=== PATIENT | male | born 1940 | race Caucasian/White ===

== ENCOUNTER → 2019-03-07 13:05 | Outpatient (CLI) | payer MEDICARE, SELFPAY ==
[2019-03-07 14:39] LABS: BUN Creatinine Ratio 16.7 (6-22); Blood Urea Nitrogen 15 mg/dL (9-20); Calcium 8.9 mg/dL (8.4-10.2); Carbon Dioxide 30 mmol/L (22-32); Chloride 100 mmol/L (98-107); Estimated Glomerular Filt Rate > 60.0 mL/min (>60); Glucose 87 mg/dL (80-110); HEMOLYSIS < 15 (0-50); Potassium 4.4 mmol/L (3.4-5.1); Sodium 138 mmol/L (137-145)
== END ==
PROVIDERS: Family Provider Internal Medicine; PCP Internal Medicine; Visit Provider Internal Medicine Cardiovascular Disease
DX: I35.0 Nonrheumatic aortic (valve) stenosis (principal)
CPT/HCPCS: 36415; 80048

== ENCOUNTER → 2019-05-31 07:53 | Outpatient (CLI) | payer MEDICARE, SELFPAY ==
--- NOTE | 2019-05-31 | DI.ECHO.S_ITS ---
[facility]---------+ [facility] +---------+ : : [address] : : : : [id number] : : : : Phone: [phone]+ Echocardiogram Report + + :Name: ZENAIDA SANDOVAL Study Date: 05/31/2019 Height: 71 in : :[facility] Weight: 200 lb : : Gender: Male BSA: 2.1 m2 : :: 1940 Age: 78 yrs BP: 144/70 mmHg: :Reason For Study: , POST TAVR : :Ordering Physician: Aggie : :iDmple Ferreira Performed By: Anca Corbin : :Referring: AGGIE FERREIRA : + + Interpretation Summary 1) Normal left ventricular size, wall motion, and systolic function (EF 55- 60%). 2) Normal right ventricular size and function. 3) There is a bioprosthetic aortic valve that is well-seated and opens well. There is normal prosthetic aortic valve function. 4) There is mild perivalvular regurgitation around the prosthetic aortic valve. 5) Compared to the Echo done 02/28/2019, severely stenosis aortic valve has been replaced by bioprosthetic aortic valve that is functioning well. Procedure: A two-dimensional transthoracic echocardiogram with color flow and Doppler was performed. The study quality was technically adequate. Comparison is made with the echocardiogram of 02/28/19. The patient was in atrial fibrillation with heart rates between 60 and 87 bpm during the exam. Left Ventricle: There is mild concentric left ventricular hypertrophy. The left ventricle is normal in size. The left ventricular ejection fraction is normal. The ejection fraction is estimated to be 55-60%. There are no focal wall motion abnormalities. Diastolic function could not be accurately assessed due to atrial fibrillation. Right Ventricle: The right ventricle is normal in size and function. Atria: The left atrium is severely dilated. The right atrium is severely dilated. There is no Doppler evidence for an interatrial shunt. Mitral Valve: The mitral valve leaflets appear mildly thickened, but open well. There is mild mitral annular calcification. There is trace mitral regurgitation. Aortic Valve: New TAVR. Multiple leaks. There is a bioprosthetic aortic valve. The prosthetic aortic valve is well-seated. There is mild perivalvular regurgitation around the prosthetic aortic valve. There is probable normal prosthetic aortic valve function. The prosthetic aortic valve appears to open well. The peak aortic velocity is 1.9 m/sec. The peak aortic velocity on the previous exam was 4.35 m/sec. The aortic valve mean gradient is 7 mmHg. Tricuspid Valve: The tricuspid valve is normal. There is mild tricuspid regurgitation. The right ventricular systolic pressure is estimated to be at least 38 mmHg based on an estimated right atrial pressure of 8 mm Hg. Pulmonic Valve: The pulmonic valve is not well seen, but is grossly normal. There is trace pulmonic regurgitation. Great Vessels: The aortic root is normal size. The ascending aorta is at the upper limits of normal in size. The aortic arch is normal in size. The pulmonary is not well visualized. The IVC is dilated (diameter is greater than 2.1 cm) yet it collapses greater than 50% with a sniff. This suggests a right atrial pressure of 8 mm Hg. Pericardium/ Pleura There is no pericardial effusion. There is no pleural effusion. MMode/2D Measurements & Calculations LVIDd: 4.6 cm LVOT diam: 2.1 cm LVIDs: 2.7 cm Ao root diam: 3.7 cm FS: 41.2 % asc Aorta Diam: 3.8 cm EPSS: 0.77 cm Ao Arch Diam (Prox Trans): 2.8 cm IVSd: 1.4 cm LVPWd: 1.2 cm LV guzman. diameter/BSA (cm/m^2): 2.2 LV sys. diameter/BSA (cm/m^2): 1.3 LA A2 area: 38.0 cm2 RA long axis: 6.7 cm LA A4 area: 39.6 cm2 RA area: 33.1 cm2 LA length (vol): 6.8 cm RA vol: 139.4 ml LA vol: 187.5 ml RA : 66.1 ml/m2 LA vol index: 88.9 ml/m2 IVC diam: 2.6 cm RVD1 (basal): 4.9 cm RVD2 (mid): 3.0 cm TAPSE: 1.8 cm Doppler Measurements & Calculations Ao V2 max: 185.7 cm/sec LVOT Max Otf: 76.9 cm/sec Ao V2 mean: 124.7 cm/sec LV V1 max P.4 mmHg Ao max P.8 mmHg LV V1 VTI: 14.0 cm Ao mean P.1 mmHg DAVON(I,D): 1.6 cm2 Ao V2 VTI: 31.4 cm DAVON(V,D): 1.5 cm2 sev ratio: 0.45 DAVON indexed to BSA (cm^2/m^2): 0.76 MV E max otf: 100.0 cm/sec TR max otf: 272.3 cm/sec TR max P.7 mmHg PA V2 max: 75.7 cm/sec PA V2 mean: 49.4 cm/sec PA mean P.1 mmHg PA Accel Time: 0.06 sec SV(LVOT): 50.5 ml Reading Physician:11:34 AM
== END ==
PROVIDERS: PCP Internal Medicine; Visit Provider Internal Medicine Cardiovascular Disease
DX: I08.2 Rheumatic disorders of both aortic and tricuspid valves (principal); I48.91 Unspecified atrial fibrillation; Z95.2 Presence of prosthetic heart valve
CPT/HCPCS: 93306

== ENCOUNTER → 2020-05-03 09:20 | Outpatient (CLI) | payer MEDICARE, SELFPAY ==
[2020-05-03 10:07] LABS: Add Manual Diff / Slide Review NO; Basophils Absolute Auto 0 /uL (0-100); Basophils Percent Auto 0.6 % (0-2); Eosinophils Absolute Auto 100 /uL (0-450); Eosinophils Percent Auto 2.8 % (2-4); Hematocrit 40.1 % (41-53); Hemoglobin 13.8 g/dL (13.5-17.5); Lymphocytes Absolute Auto 800 /uL (1100-4500); Lymphocytes Percent Auto 18.2 % (25-40); Mean Corpuscular HGB Conc 34.4 % (30-36); Mean Corpuscular Hemoglobin 30.3 PG (26-34); Mean Corpuscular Volume 88.3 fL (80-100); Monocytes Absolute Auto 400 /uL (0-900); Monocytes Percent Auto 8.2 % (3-14); Neutrophils Absolute Auto 3100 /uL (1500-7000); Neutrophils Percent Auto 70.2 % (50-75); Platelet Count 138 X10^3/uL (150-400); Red Blood Cell Count 4.54 X10^6/uL (4.5-5.9); Red Cell Distribution Width 13.8 % (11.6-14.8); White Blood Cell Count 4.3 X10^3/uL (4.5-11.0)
[2020-05-03 10:27] LABS: BUN Creatinine Ratio 21.6 (6-22); Blood Urea Nitrogen 16 mg/dL (9-20); Calcium 9.1 mg/dL (8.4-10.2); Carbon Dioxide 31 mmol/L (22-32); Chloride 103 mmol/L (98-107); Cholesterol 167 mg/dL (140-199); Estimated Glomerular Filt Rate > 60.0 mL/min (>60); Glucose 105 mg/dL (80-110); HDL Cholesterol 55 mg/dL (40-60); HEMOLYSIS < 15 (0-50); LDL Cholesterol Calculated 101 mg/dL (<100); Potassium 4.8 mmol/L (3.4-5.1); Sodium 138 mmol/L (137-145); Triglycerides 57 mg/dL (35-150)
== END ==
PROVIDERS: PCP Internal Medicine; Referring Provider Internal Medicine Cardiovascular Disease; Visit Provider Internal Medicine Cardiovascular Disease
DX: I10 Essential (primary) hypertension (principal)
CPT/HCPCS: 36415; 80048; 80061; 85025

== ENCOUNTER → 2020-06-12 15:50 | Outpatient (CLI) | payer MEDICARE, SELFPAY ==
--- NOTE | 2020-06-12 | DI.ECHO.S_ITS ---
[facility]---------+ [facility] +---------+ : : [address] : : : : [id number] : : : : Phone: [phone]+ Echocardiogram Report + + :Name: ZENAIDA SANDOVAL Study Date: 06/12/2020 Height: 72 in : :[facility] Weight: 215 lb : : Gender: Male BSA: 2.2 m2 : :: 1940 Age: 80 yrs BP: 167/98 mmHg: :Reason For Study: Aortic valve replacement - bioprosthetic : :Ordering Physician: Aggie Musa : :Hanna Performed By: Aixa Navarro : :Referring: AGGIE FERREIRA : + + Interpretation Summary 1) Normal left ventricular size, wall motion, and systolic function (EF 55- 60%). 2) Normal right ventricular size and function. 3) There is a bioprosthetic aortic valve that is well-seated and opens well. There is normal prosthetic aortic valve function (mean gradient 9.6mmHg).. There is mild perivalvular regurgitation around the prosthetic aortic valve. 4) Compared to the Echo done 05/31/2019, no significant change. Procedure: A two-dimensional transthoracic echocardiogram with color flow and Doppler was performed. The study quality was technically adequate. Comparison is made with the echocardiogram of 05/31/2019. The patient was in atrial fibrillation with heart rates between 60-93 bpm during the exam. Left Ventricle: The left ventricle is normal in size and wall thickness. The ejection fraction is estimated to be 55-60%. Diastolic function could not be accurately assessed due to atrial fibrillation. Right Ventricle: The right ventricle is normal size. Right ventricular systolic function is at the lower limits of normal. Atria: The left atrium is severely dilated. The right atrium is severely dilated. There is no Doppler evidence for an interatrial shunt. Mitral Valve: The mitral valve leaflets appear mildly thickened, but open well. There is mild mitral annular calcification. There is mild mitral regurgitation. Aortic Valve: There is a bioprosthetic aortic valve. The prosthetic aortic valve appears to open well. There is mild perivalvular regurgitation around the prosthetic aortic valve. There is no aortic valve stenosis. Tricuspid Valve: The tricuspid valve is not well visualized, but is grossly normal. There is moderate tricuspid regurgitation. The right ventricular systolic pressure is estimated to be at least 35 mmHg based on an estimated right atrial pressure of 3 mm Hg. Pulmonic Valve: The pulmonic valve leaflets are thin and pliable; valve motion is normal. There is mild pulmonic regurgitation. Great Vessels: The aortic root is not well visualized. The ascending aorta is mild-moderately enlarged. The IVC is of normal diameter and collapses greater than 50% with a sniff. This suggests a low right atrial pressure of 3 mm Hg. Pericardium/ Pleura There is no pericardial effusion. There is no pleural effusion. MMode/2D Measurements & Calculations LVIDd: 4.9 cm LVOT diam: 2.2 cm LVIDs: 3.4 cm asc Aorta Diam: 3.9 cm FS: 30.5 % Ao Arch Diam (Prox Trans): 2.7 cm EPSS: 1.2 cm IVSd: 1.0 cm LVPWd: 0.97 cm LV guzman. diameter/BSA (cm/m^2): 2.2 LV sys. diameter/BSA (cm/m^2): 1.6 LA A2 area: 31.6 cm2 RA long axis: 7.1 cm LA A4 area: 32.9 cm2 RA area: 31.0 cm2 LA length (vol): 7.0 cm RA vol: 114.7 ml LA vol: 126.9 ml RA : 52.2 ml/m2 LA vol index: 57.8 ml/m2 IVC diam: 1.7 cm RVD1 (basal): 3.8 cm TAPSE: 1.7 cm Doppler Measurements & Calculations Ao V2 max: 215.5 cm/sec LVOT Max Otf: 93.2 cm/sec Ao V2 mean: 141.7 cm/sec LV V1 max P.5 mmHg Ao max P.6 mmHg LV V1 VTI: 18.4 cm Ao mean P.6 mmHg DAVON(I,D): 1.8 cm2 Ao V2 VTI: 37.9 cm DAVON(V,D): 1.6 cm2 sev ratio: 0.49 DAVON indexed to BSA (cm^2/m^2): 0.82 AI P1/2t: 589.8 msec AI dec slope: 238.4 cm/sec2 MV E max otf: 72.2 cm/sec TR max otf: 283.5 cm/sec MV A max otf: 108.4 cm/sec TR max P.2 mmHg MV E/A: 0.67 PA V2 max: 96.7 cm/sec Med Peak E' Otf: 10.6 cm/sec PA V2 mean: 62.6 cm/sec E/E' med: 6.8 PA mean P.8 mmHg Lat Peak E' Otf: 11.3 cm/sec PA pr(Accel): 44.7 mmHg E/E' lat: 6.4 E/e' average: 6.6 MV dec time: 0.21 sec SV(LVOT): 68.6 ml Reading Physician:01:09 PM
== END ==
PROVIDERS: PCP Internal Medicine; Referring Provider Internal Medicine Cardiovascular Disease; Visit Provider Internal Medicine Cardiovascular Disease
DX: I08.3 Combined rheumatic disorders of mitral, aortic and tricuspid valves (principal); I77.89 Other specified disorders of arteries and arterioles; Z95.2 Presence of prosthetic heart valve
CPT/HCPCS: 93306

== ENCOUNTER 2021-03-27 09:11 | Emergency (ER) | payer MEDICARE, SELFPAY ==
[2021-03-27] VITALS (7 sets, daily range): BP systolic 144–152; BP diastolic 70–77; PULSE 88–95; RESP 16–37; TEMP 36.9; O2SAT 94–97; BMI 30.1
--- NOTE | 2021-03-27 09:24 | ED_ITS ---
HPI - General Adult General Chief complaint: Abdominal Pain Stated complaint: Abdominal pain Time Seen by Provider: 03/27/21 09:14 Source: patient Mode of arrival: Ambulatory Limitations: no limitations History of Present Illness HPI narrative: Patient is an 80-year-old male with a history of atrial fibrillation and aortic valve replacement and is on anticoagulation here for evaluation of approximately 2 days of right upper quadrant abdominal pain. He states that it started about 2 days ago. Was a fairly sudden onset. Occurred at night. Has been consistent since that time. Does not associated with worsening or getting better with eating or movement or palpation are going to the bathroom. He states that this morning the symptoms seem to have improved and now he is essentially symptom-free. Related Data Home Medications Medication Instructions Recorded Confirmed ASPIRIN (#ASPIRIN) 81 mg PO QDAY #0 07/22/12 atenolol 25 mg PO QDAY #0 07/22/12 doxazosin [Cardura] 2 mg PO QDAY #0 07/22/12 finasteride 5 mg PO QDAY #0 07/22/12 hydrochlorothiazide 25 mg PO QDAY #0 07/22/12 latanoprost [Xalatan] 1 drp [facility] HS #0 07/22/12 losartan 100 mg PO QDAY #0 07/22/12 sertraline 100 mg PO QDAY #0 07/22/12 Allergies Allergy/AdvReac Type Severity Reaction Status Date / Time No Known Drug Allergies Allergy Verified 03/27/21 09:23 Review of Systems Constitutional Constitutional: Denies fever(s) Cardiovascular Cardiovascular: Denies chest pain and Denies dyspnea Respiratory Respiratory: Denies dyspnea Gastrointestinal Gastrointestinal: Reports system reviewed and no additional complaints, except as documented, Reports abdominal pain, Denies nausea and Denies vomiting Genitourinary Genitourinary: Denies dysuria Genitourinary: Denies dysuria Musculoskeletal Musculoskeletal: Denies back pain Integumentary/Breasts Skin/Breast: Denies rash Neurologic Neurologic: Reports system reviewed and no additional complaints, except as documented Psychiatric Psychiatric: Reports system reviewed and no additional complaints, except as documented Endocrine Endocrine: Reports system reviewed and no additional complaints, except as documented Hematologic/Lymphatic On Anticoagulants: Yes Allergic/Immunologic Allergic/Immunologic: Reports system reviewed and no additional complaints, except as documented Patient History Medical History Atrial fibrillation Surgical History (Updated 03/27/21 @ 09:26 by Ihsan Mcgowan DO) Aortic valve replaced Social History Smoking Status: Never smoker Smoking Status: Never smoker alcohol intake frequency: 0-2 drinks per day Substance Use Type: does not use Exam Initial Vital Signs Initial Vital Signs: Vital Signs Temperature 98.5 F 03/27/21 09:13 Pulse Rate 94 H 03/27/21 09:13 Respiratory Rate 16 03/27/21 09:13 Blood Pressure 144/77 H 03/27/21 09:13 Pulse Oximetry 97 03/27/21 09:13 Const General: cooperative and comfortable Limitations: mental status not altered HENMT Head: normal to inspection and normocephalic Resp Effort & Inspection: normal respiratory effort Auscultation: clear to auscultation bilaterally Cardio Rate: regular rate Rhythm: regular rhythm GI Inspection: non-distended Palpation: soft, No firm and No tender Back/Spine/Pelvis Back: No CVA tenderness Skin Lesions: no lesions Rashes: no rashes Neuro General: patient alert, patient awake and patient oriented x3 Cognition: normal cognition Speech: speech normal Extrem General: normal to inspection and capillary refill normal Psych Appearance: grossly normal and well kempt Course Orders Ordered: ED Orders 03/27/21 09:16 Complete Blood Count AUTO DIFF Stat Comprehensive Metabolic Panel Stat Lipase Stat Troponin & CK Cardiac Panel Stat 03/27/21 09:19 EKG-12 Lead Stat 03/27/21 09:25 US abdomen limited Stat Vital Signs Vital signs: Vital Signs - 8 hr 03/27/21 09:13 Temperature 98.5 F Pulse Rate 94 H Respiratory Rate 16 Blood Pressure 144/77 H Pulse Oximetry 97 Medical Decision Making Lab Data Lab results reviewed: Yes I reviewed the patient's lab results. Result diagrams: 03/27/21 09:16 03/27/21 09:16 Labs: Lab Results 03/27/21 03/27/21 03/27/21 Range/Units 09:16 09:16 09:16 WBC 10.8 (4.5-11.0) X10^3/uL RBC 5.04 (4.5-5.9) X10^6/uL Hgb 15.3 (13.5-17.5) g/dL Hct 45.1 (41-53) % MCV 89.6 (80-100) fL MCH 30.4 (26-34) PG MCHC 33.9 (30-36) % RDW 13.7 (11.6-14.8) % Plt Count 161 (150-400) X10^3/uL Neut % (Auto) 80.7 H (50-75) % Lymph % (Auto) 8.9 L (25-40) % [place] % (Auto) 8.9 (3-14) % Eos % (Auto) 1.2 L (2-4) % Baso % (Auto) 0.3 (0-2) % Neut # (Auto) 8700 H (4203-7591) /uL Lymph # (Auto) 1000 L (7285-8134) /uL [place] # (Auto) 1000 H (0-900) /uL Eos # (Auto) 100 (0-450) /uL Baso # (Auto) 0 (0-100) /uL Sodium 133 L (137-145) mmol/L Potassium 3.3 L (3.4-5.1) mmol/L Chloride 98 (98-107) mmol/L Carbon Dioxide 28 (22-32) mmol/L BUN 12 (9-20) mg/dL Creatinine 0.66 (0.66-1.25) mg/dL Estimated GFR > 60.0 (>60) mL/min BUN/Creatinine Ratio 18.2 (6-22) Glucose 126 H (80-110) mg/dL Calcium 8.9 (8.4-10.2) mg/dL Total Bilirubin 2.0 H (0.2-1.3) mg/dL AST 29 (17-59) IU/L ALT 19 (<50) IU/L Alkaline Phosphatase 84 (38-126) U/L Total Creatine Kinase 55 (55-170) U/L CK-MB (CK-2) TNP CK-MB (CK-2) Rel Index TNP Troponin I < 0.012 (0.01-0.034) ng/mL Total Protein 7.4 (6.3-8.2) g/dL Albumin 4.5 (3.5-5.0) g/dL Globulin 2.9 (1.7-4.1) g/dL Albumin/Globulin Ratio 1.6 (1.0-2.8) Lipase 43 (23-300) U/L Imaging Data US - abdomen: Radiologist's Impression: [address] [address]Cecldrqdow ReportSigned Patient: Cornell Gaspar EMR#: [id number]: 8Acct:[id number]/Sex: 80 / MDate of Service: 03/27/21Loc: EDAccession Number: [id number] Procedure: US abdomen limited Ordering Provider: Ihsan Mcgowan D.O. PROCEDURE: US ABDOMEN LIMITED INDICATIONS: Right upper quadrant abdominal pain TECHNIQUE: Real-time focused scanning was performed of the abdomen, with image documentation. COMPARISON: None. FINDINGS: The gallbladder appears normally distended. There is no gallbladder wall thickening. There is a large approximately 3.6 x 5.6 cm gallstone which is nonmobile near the gallbladder neck, potentially impacted. The electronic system engineer reports a negative sonographic Zuñiga sign. There is no pericholecystic fluid. Normal caliber intrahepatic and extrahepatic biliary ducts. IMPRESSION: Large 3.6 x 5.6 cm gallstone which is nonmobile near the gallbladder neck, potentially impacted. No findings of cholecystitis. Dictated by: Bartolome Sims M.D. on 03/27/2021 at 10:18 Approved by: Bartolome Sims M.D. on 03/27/2021 at 10:20 ECG Data Attestation: I personally reviewed and interpreted this ECG as follows: Prior ECG tracings: not available for review Interpretation: Atrial fibrillation Ventricular rate 81 Normal axis Normal QRS Normal QTC No ST T wave changes MDM Narrative Medical decision making narrative: Patient has no leukocytosis. His bilirubin is slightly elevated however the rest of his LFTs and lipase are unremarkable. He has been asymptomatic since arrival here to the emergency department. Afebrile. Has a large gallstone however no signs of cholecystitis on the ultrasound. I did discuss the case with Dr. Guerrero with General surgery. Have patient follow-up as an outpatient. I did discuss this with the patient. We did discuss gallbladder hand diet changes. We did discuss return precautions. He was given contact information for follow-up. He expressed understanding and agreement. Discharge Plan Departure Patient Disposition: Home Clinical Impression: Cholelithiasis Instructions: Gallstones (Alternative Therapy), DI for Gallstones Activity Restrictions/Additional Instructions: You do have a large gallstone noted on the ultrasound however there does not appear to be any infections/inflammation related to this. I recommend that you contact the [facility] at [phone]. They can see you as an outpatient to discuss potential removal of your gallbladder. Until then I recommend that you avoid foods that contain increase/fat/oils as this may cause a return of your symptoms. If you start to have fevers or pain that does not resolve please return to the emergency department for further evaluation Prescriptions: No Action ASPIRIN (#ASPIRIN) 81 mg PO QDAY Qty: 0 RF: 0 latanoprost [Xalatan] 0.005 % drops 1 drp OPHTH HS Qty: 0 RF: 0 sertraline 50 MG tablet 100 mg PO QDAY Qty: 0 RF: 0 hydrochlorothiazide 25 MG tablet 25 mg PO QDAY Qty: 0 RF: 0 doxazosin [Cardura] 1 MG tablet 2 mg PO QDAY Qty: 0 RF: 0 losartan 100 MG tablet 100 mg PO QDAY Qty: 0 RF: 0 finasteride 5 MG tablet 5 mg PO QDAY Qty: 0 RF: 0 atenolol 25 MG tablet 25 mg PO QDAY Qty: 0 RF: 0 Referrals: Maximiliano Martinez MD [Primary Care Provider] - Pete Guerrero MD [Physician] -
[2021-03-27 09:34] LABS: Add Manual Diff / Slide Review NO; Basophils Absolute Auto 0 /uL (0-100); Basophils Percent Auto 0.3 % (0-2); Eosinophils Absolute Auto 100 /uL (0-450); Eosinophils Percent Auto 1.2 % (2-4); Hematocrit 45.1 % (41-53); Hemoglobin 15.3 g/dL (13.5-17.5); Lymphocytes Absolute Auto 1000 /uL (1100-4500); Lymphocytes Percent Auto 8.9 % (25-40); Mean Corpuscular HGB Conc 33.9 % (30-36); Mean Corpuscular Hemoglobin 30.4 PG (26-34); Mean Corpuscular Volume 89.6 fL (80-100); Monocytes Absolute Auto 1000 /uL (0-900); Monocytes Percent Auto 8.9 % (3-14); Neutrophils Absolute Auto 8700 /uL (1500-7000); Neutrophils Percent Auto 80.7 % (50-75); Platelet Count 161 X10^3/uL (150-400); Red Blood Cell Count 5.04 X10^6/uL (4.5-5.9); Red Cell Distribution Width 13.7 % (11.6-14.8); White Blood Cell Count 10.8 X10^3/uL (4.5-11.0)
[2021-03-27 09:45] LABS: Creatine Kinase 55 U/L (55-170); Lipase 43 U/L (23-300)
[2021-03-27 09:57] LABS: Troponin I < 0.012 ng/mL (0.01-0.034)
[2021-03-27 09:59] LABS: Alanine Aminotransferase 19 IU/L (<50); Albumin 4.5 g/dL (3.5-5.0); Albumin Globulin Ratio 1.6 (1.0-2.8); Alkaline Phosphatase 84 U/L (38-126); Aspartate Aminotransferase 29 IU/L (17-59); BUN Creatinine Ratio 18.2 (6-22); Blood Urea Nitrogen 12 mg/dL (9-20); Calcium 8.9 mg/dL (8.4-10.2); Carbon Dioxide 28 mmol/L (22-32); Chloride 98 mmol/L (98-107); Estimated Glomerular Filt Rate > 60.0 mL/min (>60); Globulin 2.9 g/dL (1.7-4.1); Glucose 126 mg/dL (80-110); HEMOLYSIS 18 (0-50); Potassium 3.3 mmol/L (3.4-5.1); Sodium 133 mmol/L (137-145); Total Protein 7.4 g/dL (6.3-8.2)
== END 2021-03-27 11:08 | disposition home or self-care (01) ==
PROVIDERS: Emergency Provider Emergency Medicine; PCP Internal Medicine
DX: K80.20 Calculus of gallbladder without cholecystitis without obstruction (principal)
CPT/HCPCS: 36415; 76705; 80053; 82550; 83690; 84484; 85025; 93005; 99284

== ENCOUNTER → 2021-04-15 15:12 | Outpatient (CLI) | payer MEDICARE, SELFPAY ==
[2021-04-15 15:58] LABS: COVID19 -Nasal RAPID Negative (Negative)
== END ==
PROVIDERS: PCP Internal Medicine; Visit Provider Specialist
DX: Z20.822 Contact with and (suspected) exposure to COVID-19 (principal)
CPT/HCPCS: 87635; C9803

== ENCOUNTER 2021-04-16 08:52 | Day surgery (SDC) | payer MEDICARE, SELFPAY ==
[2021-04-11 11:27] VITALS: BMI 30.5
[2021-04-16] VITALS (9 sets, daily range): BP systolic 97–151; BP diastolic 44–73; PULSE 62–81; RESP 7–16; TEMP 36.1–36.4; O2SAT 94–100; BMI 27.8
--- NOTE | 2021-04-16 | PATH_ITS ---
[facility] Accession Number: [id number] . 01 Material submitted: . gallbladder - GALLBLADDER . 02 Diagnosis: Gallbladder, Cholecystectomy: Chronic cholecystitis with cholelithiasis. Negative for dysplasia and malignancy. [facility] 04/18/2021 1143 Local . 02 Electronically signed: . Jeni Strong MD, Pathologist NPI- [id number] . 01 Gross description: . The specimen is received in formalin, labeled gallbladder and consists of a 13.0 x 4.5 x 4.0 cm, previously disrupted gallbladder with a thickened 0.8 cm in diameter, cystic duct. Opening reveals multiple mays choleliths and cholelith fragments ranging from 0.1-6.0 cm. The mucosa is mays-pink and ragged to granular and the wall thickness measures 0.3 cm. [employer] sections are submitted, to include the en face cystic duct margin (blue), in cassettes A1-A2. (EA:[id number]) /MRV 04/17/2021 0931 Local . 02 Pathologist provided ICD-10: K80.60 . 02 CPT . 021969 Performed at: 01 [facility] [address], [place], [place] [id number] MD Oleg Proctor MD Phone: [phone] Performed at: [address] [facility] [id number] [place], [place] [id number] MD Jeni Strong MD Phone: [phone]
[2021-04-16] MEDS: LACTATED RINGERS 1,000 ML 100 ML IV ×2 (09:16→11:55)
--- NOTE | 2021-04-16 09:46 | PM.PREOP ---
Pre-operative Note COVID-19 COVID-19 status: Negative Result date/Date tested (Pos, Neg/Pending): 04/15/21 Interval Note History & Physical reviewed/Exam performed by Physician: Yes Changes to H&P: No
--- NOTE | 2021-04-16 10:33 | SUR.OPER ---
Supine on padded OR bed, head on pillow, safety belt at thigh, left arm padded and tucked at side. Right arm secured on padded arm oard <90 degrees abduction. Legs uncrossed. Padded footboard in place. Tape over blanket to secure lower legs.
[2021-04-16] MEDS: BUPIVACAINE 0.5% (PF) VIAL 30 ML INJ (10:47)
[2021-04-16] MEDS: CEFAZOLIN 1 GM VIAL 2 GM IV (10:49)
--- NOTE | 2021-04-16 12:18 | PM.OP.1 ---
Operative Date/Time/Diagnoses Date of procedure: 04/16/21 Time of procedure: 12:18 Pre-op diagnosis: Cholelithiasis chronic cholecystitis Post-op diagnosis: same (Hydrops of the gallbladder in addition to chronic cholecystitis and cholelithiasis) Procedure & Clinicians Procedure: Laparoscopic cholecystectomy Same procedure as scheduled: Yes Indications: Abdominal pain with an abnormal ultrasound of the gallbladder Surgeon: Pete Mendoza Yes if Unassisted: Yes Anesthesia Type: General Operative Notes Findings: Chronically inflamed gallbladder. Hydrops of the gallbladder due to stone obstructing the outflow of the gallbladder. Closure Type: primary Specimen(s): other (Gallbladder) Prosthetic devices, grafts, tissues, transplants, or devices: None Estimated Blood Loss (mL): 15 Blood products transfused: none Procedure in detail: Laparoscopic cholecystectomy Complications: none Post-operative Condition: stable Disposition: PACU
[2021-04-16] MEDS: fentaNYL 100 MCG/2 ML INJ IV (12:45)
[2021-04-16] MEDS: ACETAMINOPHEN 325 MG TABLET 650 MG PO (13:06)
[2021-04-16] MEDS: OXYCODONE IR 5 MG TABLET PO (13:07)
== END 2021-04-16 13:33 | disposition home or self-care (01) ==
PROVIDERS: PCP Internal Medicine; Referring Provider Specialist; Visit Provider Specialist
PROC: 0FT44ZZ Resection of Gallbladder, Percutaneous Endoscopic Approach (ICD-10-PCS; CPT 47562; principal; 2021-04-16 09:45)
DX: K80.10 Calculus of gallbladder with chronic cholecystitis without obstruction (principal); I10 Essential (primary) hypertension; I48.91 Unspecified atrial fibrillation; K82.1 Hydrops of gallbladder
CPT/HCPCS: 47562; J0690; J1100; J2405; J2704; J3010

== ENCOUNTER → 2023-03-11 13:43 | Outpatient (CLI) | payer MEDICARE, SELFPAY ==
[2023-03-11 14:28] LABS: BUN Creatinine Ratio 17.1 (6-22); Blood Urea Nitrogen 14 mg/dL (9-20); Calcium 8.8 mg/dL (8.4-10.2); Carbon Dioxide 32 mmol/L (22-32); Chloride 100 mmol/L (98-107); Estimated Glomerular Filt Rate > 60 mL/min (>60); Glucose 100 mg/dL (80-110); HEMOLYSIS < 15 (0-50); Potassium 3.6 mmol/L (3.4-5.1); Sodium 138 mmol/L (137-145)
[2023-03-11 14:39] LABS: Add Manual Diff / Slide Review NO; Basophils Absolute Auto 0 /uL (0-100); Basophils Percent Auto 0.8 % (0-2); Eosinophils Absolute Auto 200 /uL (0-450); Eosinophils Percent Auto 3.7 % (2-4); Hematocrit 41.7 % (41-53); Hemoglobin 14.3 g/dL (13.5-17.5); Lymphocytes Absolute Auto 1300 /uL (1100-4500); Lymphocytes Percent Auto 21.6 % (25-40); Mean Corpuscular HGB Conc 34.4 % (30-36); Mean Corpuscular Hemoglobin 30.3 PG (26-34); Mean Corpuscular Volume 88.3 fL (80-100); Monocytes Absolute Auto 500 /uL (0-900); Monocytes Percent Auto 9.2 % (3-14); Neutrophils Absolute Auto 3800 /uL (1500-7000); Neutrophils Percent Auto 64.7 % (50-75); Platelet Count 201 X10^3/uL (150-400); Red Blood Cell Count 4.73 X10^6/uL (4.5-5.9); Red Cell Distribution Width 13.6 % (11.6-14.8); White Blood Cell Count 5.9 X10^3/uL (4.5-11.0)
== END ==
PROVIDERS: PCP Internal Medicine; Referring Provider Internal Medicine Cardiovascular Disease; Visit Provider Internal Medicine Cardiovascular Disease
DX: I10 Essential (primary) hypertension (principal)
CPT/HCPCS: 36415; 80048; 85025

== ENCOUNTER → 2023-04-20 12:08 | Outpatient (CLI) | payer MEDICARE, SELFPAY ==
--- NOTE | 2023-04-20 | DI.ECHO.S_ITS ---
[facility] +---------+ : : [address] : [place] : : : : [id number] : : : : Phone: [phone]+ Echocardiogram Report + + :Name: ZENAIDA SANDOVAL Study Date: 04/20/2023 Height: 72 in : :[facility] ReadingLocation: Weight: 210 lb : : Gender: Male BSA: 2.2 m2 : :: 1940 Age: 82 yrs BP: 153/87 mmHg: :Reason For Study: S/P TAVR : :Ordering Physician: CHADD, : :AGGIE Performed By: Aixa Navarro : :Referring: AGGIE FERREIRA : + + Interpretation Summary 1) Normal left ventricular size, wall motion, and systolic function (EF 55- 60%). 2) Mildly enlarged right ventricle with low normal function. 3) There is a bioprosthetic aortic valve that is well-seated and opens well. There is normal prosthetic aortic valve function (mean gradient 8mmHg).. There is mild perivalvular regurgitation around the prosthetic aortic valve. 4) There is mild to moderate tricuspid regurgitation. 5) The right ventricular systolic pressure is estimated to be at least 37 mmHg based on an estimated right atrial pressure of 8 mm Hg. 6) Compared to the Echo done 06/12/2020, no significant change. Procedure: A two-dimensional transthoracic echocardiogram with color flow and Doppler was performed. The study quality was technically adequate. Comparison is made with the echocardiogram of 06/12/2020. The patient was in sinus rhythm with heart rates between 59-82 bpm during the exam. Left Ventricle: The left ventricle is normal in size and wall thickness. The ejection fraction is estimated to be 55-60%. Left ventricular systolic function appears normal without focal wall motion abnormalities. Diastolic parameters suggest a relaxation abnormality of the left ventricle, consistent with probable normal filling pressures. Right Ventricle: The right ventricle is mildly dilated. Right ventricular systolic function is at the lower limits of normal. Atria: The left atrium is moderately dilated. The right atrium is moderately dilated. There is no Doppler evidence for an interatrial shunt. Mitral Valve: The mitral valve leaflets appear mildly thickened, but open well. There is mild mitral annular calcification. There is mild mitral regurgitation. Aortic Valve: There is a bioprosthetic aortic valve. There is mild perivalvular regurgitation around the prosthetic aortic valve. Multiple jets. The peak aortic velocity is 1.9 m/sec. The aortic valve mean gradient is 8 mmHg. Tricuspid Valve: The tricuspid valve leaflets are thin and pliable. There is mild to moderate tricuspid regurgitation. The right ventricular systolic pressure is estimated to be at least 37 mmHg based on an estimated right atrial pressure of 8 mm Hg. Pulmonic Valve: The pulmonic valve is not well seen, but is grossly normal. There is mild pulmonic regurgitation. Great Vessels: The aortic root is not well visualized but is probably normal size. The ascending aorta is at the upper limits of normal in size. The IVC is dilated (diameter is greater than 2.1 cm) yet it collapses greater than 50% with a sniff. This suggests a right atrial pressure of 8 mm Hg. Pericardium/ Pleura There is no pericardial effusion. There is no pleural effusion. MMode/2D Measurements & Calculations LVIDd: 4.8 cm LVOT diam: 2.2 cm LVIDs: 2.9 cm asc Aorta Diam: 3.9 cm FS: 39.1 % Ao Arch Diam (Prox Trans): 3.1 cm EPSS: 0.67 cm IVSd: 1.1 cm LVPWd: 0.96 cm LV guzman. diameter/BSA (cm/m^2): 2.2 LV sys. diameter/BSA (cm/m^2): 1.3 LA A2 area: 21.5 cm2 RA long axis: 7.5 cm LA A4 area: 29.2 cm2 RA area: 29.1 cm2 LA length (vol): 6.9 cm RA vol: 95.8 ml LA vol: 76.7 ml RA : 44.1 ml/m2 LA vol index: 35.3 ml/m2 IVC diam: 2.1 cm RVD1 (basal): 4.6 cm RVD2 (mid): 3.3 cm TAPSE: 2.2 cm Doppler Measurements & Calculations Ao V2 max: 191.8 cm/sec LVOT Max Otf: 71.0 cm/sec Ao V2 mean: 135.6 cm/sec LV V1 max P.0 mmHg Ao max P.8 mmHg LV V1 VTI: 14.8 cm Ao mean P.2 mmHg DAVON(I,D): 1.6 cm2 Ao V2 VTI: 35.2 cm DAVON(V,D): 1.4 cm2 sev ratio: 0.42 DAVON indexed to BSA (cm^2/m^2): 0.73 AI P1/2t: 826.8 msec AI dec slope: 157.7 cm/sec2 MV E max otf: 95.0 cm/sec TR max otf: 267.6 cm/sec MV A max otf: 0.98 cm/sec TR max P.6 mmHg MV E/A: 97.3 PA V2 max: 105.0 cm/sec Med Peak E' Otf: 10.6 cm/sec PA V2 mean: 68.0 cm/sec E/E' med: 8.9 PA mean P.2 mmHg Lat Peak E' Otf: 11.2 cm/sec PA pr(Accel): 36.2 mmHg E/E' lat: 8.5 E/e' average: 8.7 MV dec time: 0.24 sec SV(LVOT): 56.0 ml Reading Physician:03:04 PM
== END ==
PROVIDERS: PCP Internal Medicine; Referring Provider Internal Medicine Cardiovascular Disease; Visit Provider Internal Medicine Cardiovascular Disease
DX: Z95.2 Presence of prosthetic heart valve (principal); I08.3 Combined rheumatic disorders of mitral, aortic and tricuspid valves
CPT/HCPCS: 93306

== ENCOUNTER → 2024-04-13 14:52 | Outpatient (CLI) | payer MEDICARE, SELFPAY ==
--- NOTE | 2024-04-13 | DI.ECHO.S_ITS ---
[facility] : : [address] : [place] : : [id number] : : Phone: [phone] Echocardiogram Report + + :Name: ZENAIDA SANDOVAL Study Date: 04/13/2024 Height: 71 in : :[facility] ReadingLocation: Weight: 210 lb : : Gender: Male BSA: 2.2 m2 : :: 1940 Age: 83 yrs BP: 151/96 mmHg: :Reason For Study: PRESENCE OF PROSTHETIC HEART VALVE : :Ordering Physician: CHADD, : :AGGIE Performed By: Bartolome Jade : :Referring: AGGIE FERREIRA : + + Interpretation Summary 1) Normal left ventricular size, wall motion, and systolic function (EF 55- 60%). 2) Mildly enlarged right ventricle with low normal function. 3) There is a bioprosthetic aortic valve that is well-seated and opens well. There is normal prosthetic aortic valve function (mean gradient 9mmHg).. There is mild perivalvular regurgitation around the prosthetic aortic valve. 4) There is mild to moderate tricuspid regurgitation. 5) The right ventricular systolic pressure is estimated to be at least 40 mmHg based on an estimated right atrial pressure of 8 mm Hg. 6) Compared to the Echo done 04/20/2023, no significant change. Procedure: A two-dimensional transthoracic echocardiogram with color flow and Doppler was performed. The study quality was technically adequate. Comparison is made with the echocardiogram of 04/20/2023. The patient was in atrial fibrillation with heart rates between 66-101 bpm during the exam. Left Ventricle: The left ventricle is normal in size. Left ventricular wall thickness is mildly increased. The ejection fraction is estimated to be 55- 60%. Left ventricular systolic function appears normal without focal wall motion abnormalities. Right Ventricle: The right ventricle is mildly dilated. Right ventricular systolic function is at the lower limits of normal. Atria: The left atrium is moderately dilated. The right atrium is moderate to severely dilated. The interatrial septum grossly appears intact with no obvious evidence for an atrial septal defect. Mitral Valve: The mitral valve is grossly normal. There is moderate to severe mitral annular calcification. There is no mitral valve stenosis. There is trace mitral regurgitation. Aortic Valve: There is a bioprosthetic aortic valve. The prosthetic aortic valve is well-seated. The prosthetic aortic valve appears to open well. The peak aortic velocity is 2.07 m/sec. The aortic valve mean gradient is 8.6 mmHg. There is mild aortic regurgitation. Tricuspid Valve: The tricuspid valve is not well visualized, but is grossly normal. There is mild tricuspid valve prolapse. There is no tricuspid stenosis. There is mild to moderate tricuspid regurgitation. The right ventricular systolic pressure is estimated to be at least 39.8 mmHg based on an estimated right atrial pressure of 8 mm Hg. Pulmonic Valve: The pulmonic valve is not well visualized. There is no pulmonic valvular stenosis. There is mild pulmonic regurgitation. Great Vessels: The aortic root is mildly dilated. The ascending aorta is mildly enlarged. The IVC is dilated (diameter is greater than 2.1 cm) yet it collapses greater than 50% with a sniff. This suggests a right atrial pressure of 8 mm Hg. Pericardium/ Pleura There is no pericardial effusion. There is no pleural effusion. MMode/2D Measurements & Calculations LVIDd: 4.7 cm LVOT diam: 2.2 cm LVIDs: 3.1 cm Ao root diam: 3.7 cm FS: 34.5 % asc Aorta Diam: 3.8 cm IVSd: 1.2 cm Ao Arch Diam (Prox Trans): 3.0 cm LVPWd: 1.2 cm LV guzman. diameter/BSA (cm/m^2): 2.2 LV sys. diameter/BSA (cm/m^2): 1.4 LA A2 area: 25.7 cm2 RA long axis: 6.7 cm LA A4 area: 36.6 cm2 RA area: 31.8 cm2 LA length (vol): 7.6 cm RA vol: 127.3 ml LA vol: 105.0 ml RA : 59.1 ml/m2 LA vol index: 48.8 ml/m2 IVC diam: 2.2 cm RVD1 (basal): 5.0 cm RVD2 (mid): 4.0 cm Doppler Measurements & Calculations Ao V2 max: 207.3 cm/sec LVOT Max Otf: 91.4 cm/sec Ao V2 mean: 137.2 cm/sec LV V1 max P.3 mmHg Ao max P.2 mmHg LV V1 VTI: 16.7 cm Ao mean P.6 mmHg DAVON(I,D): 1.7 cm2 Ao V2 VTI: 38.2 cm DAVON(V,D): 1.7 cm2 sev ratio: 0.44 DAVON indexed to BSA (cm^2/m^2): 0.78 AI P1/2t: 560.1 msec AI dec slope: 248.1 cm/sec2 MV E max otf: 92.9 cm/sec TR max otf: 282.0 cm/sec MV A max otf: 21.1 cm/sec TR max P.8 mmHg MV E/A: 4.4 PA V2 max: 116.0 cm/sec Med Peak E' Otf: 8.7 cm/sec PA V2 mean: 75.8 cm/sec E/E' med: 10.7 PA mean P.6 mmHg Lat Peak E' Otf: 11.6 cm/sec PA pr(Accel): 47.0 mmHg E/E' lat: 8.0 E/e' average: 9.3 MV dec time: 0.22 sec SV(LVOT): 64.6 ml Reading Physician:05:18 PM
== END ==
PROVIDERS: PCP Internal Medicine; Referring Provider Internal Medicine Cardiovascular Disease; Visit Provider Internal Medicine Cardiovascular Disease
DX: I77.810 Thoracic aortic ectasia (principal); I08.3 Combined rheumatic disorders of mitral, aortic and tricuspid valves; I77.89 Other specified disorders of arteries and arterioles; Z95.2 Presence of prosthetic heart valve
CPT/HCPCS: 93306